=== PATIENT | male | born 1985 | race Caucasian/White ===

== ENCOUNTER 2020-07-11 03:22 | Emergency (ER) | payer OTHER ==
[~2020-07-11] VITALS: Ht 172.7 cm; Wt 115.2 kg
[2020-07-11 03:32] VITALS: Ht 172.7 cm; Wt 115.2 kg
[2020-07-11 05:34] VITALS: BP 163/100
== END 2020-07-11 05:34 | disposition home or self-care (01) ==
LOC: ED 03:22
DX: M54.5 Low back pain (principal)